=== PATIENT | female | born 1975 | race Caucasian/White ===

== ENCOUNTER → 2016-09-21 | Outpatient (CLI) | payer OTHER ==
--- NOTE | 2016-09-25 08:34 | WOMENS IMAGING REPORT ---
EXAM DESCRIPTION: BILAT SCREENING MAMMO W/CAD COMPLETED DATE/TIME: 09/21/2016 1:40 pm REASON FOR STUDY: Z12.31, ROUTINE SCREENING MAMMO Z12.31 ENCNTR SCREEN MAMMOGRAM FOR MALIGNANT NEOP LASM OF BREA COMPARISON: None. TECHNIQUE: Standard craniocaudal and mediolateral oblique views of each breast recorded using Solexaa l acquisition. LIMITATIONS: None. FINDINGS: No masses, calcifications or architectural distortion. No areas of suspicion. Read with the assistance of CAD. .[facility] - R2 Cenova Version 1.3 .[facility] - R2 Cenova Version 1.3 .[facility] - R2 Cenova Version 2.4 .[facility] - R2 Cenova Version 2.4 .[facility] - R2 Communications Professor Version 9.2 BREAST DENSITY: b. There are scattered areas of fibroglandular density. BIRAD: 1 NEGATIVE RECOMMENDATION: ROUTINE SCREENING COMMENT: PATIENT NOTIFIED BY LETTER. The [employer] recommends an annual screening mammogram for women aged 40 years or over. Each patient will receive a reminder prior to the anniversary date of her mammogram. The [employer] (ACR) has developed recommendations for screening MRI of the breast s in certain patient populations, to be used in conjunction with mammography. Breast MRI surveillanc e may be appropriate for women with more than 20% lifetime risk of developing breast cancer as deter mined by genetic testing, significant family history of the disease, or history of mantle radiation f or Hodgkins Disease. ACR Practice Guidelines 2008. TECHNICAL DOCUMENTATION: FINDING NUMBER: (1) ASSESSMENT: (1) JOB ID: [id number] [employer]- All Rights Reserved
== END ==
LOC: WI 13:15
PROVIDERS: ATTEND Nurse Practitioner Family
DX: Z12.31 Encounter for screening mammogram for malignant neoplasm of breast (principal)
CPT/HCPCS: 77067; G0202

== ENCOUNTER 2016-10-11 19:11 | Emergency (ER) | payer OTHER ==
[2016-10-11] MEDS ORDERED: ACETAMINOPHEN 325 MG TABLET PO ONE (20:13)
--- NOTE | 2016-10-11 20:13 | ER Document Report ---
ED Medical Screen (RME) - General Stated Complaint: COUGH/VOMITING/DIZZINESS Notes: patient is a 41 year old female p/w cough, chills, fever, n/v since last night emesis x1 denies nausea currently did receive a flu vaccine this year mother in law and brother in law were sick contacts I have greeted and performed a rapid initial assessment of this patient. A comprehensive ED assessment and evaluation of the patient, analysis of test results and completion of the medical decision making process will be conducted by additional ED providers. TRAVEL OUTSIDE OF THE [place] IN LAST 30 DAYS: No - Related Data Allergies/Adverse Reactions: diazepam [From Valium] Allergy (Verified 04/10/13 19:54) rash Past Medical History Pulmonary Medical History: Reports: Hx Bronchitis Neurological Medical History: Reports: Hx Migraine Musculoskeltal Medical History: Reports Hx Arthritis Past Surgical History: Reports: Hx Hysterectomy - Partial - Immunizations Immunizations up to date: Yes Hx Diphtheria, Pertussis, Tetanus Vaccination: No - will provide today
[2016-10-12] MEDS ORDERED: BENZONATATE 100 MG CAPSULE PO ONE (00:55)
[2016-10-12] MEDS ORDERED: ONDANSETRON ODT 4 MG TAB (6 TAB/DSPK) PO PRN (00:55)
[2016-10-12] MEDS ORDERED: HYDROCODONE/ACETAMINOPHEN 5-325 MG 6 TAB/DSPK PO PRN (00:55)
--- NOTE | 2016-10-12 00:57 | ER Document Report ---
ED Flu Like - General Chief Complaint: Flu Symptoms Stated Complaint: COUGH/VOMITING/DIZZINESS Time seen by provider: 00:56 Mode of Arrival: Ambulatory Information source: Patient TRAVEL OUTSIDE OF THE [place] IN LAST 30 DAYS: No - HPI Patient complains to provider of: flulike symptoms Onset: Yesterday Timing/Duration: Persistent Quality of pain: Achy Severity: Mild Pain Level: 2 Associated symptoms: Body/muscle aches, Chills, Nonproductive cough, Fever, Vomiting Notes: Patient is a 41-year-old female presenting to the emergency room complaining of fever, headache, body aches, vomiting 1 episode, nonproductive cough and sore throat, symptoms have been going on since yesterday, she took some Tylenol earlier in the day and it seemed to help her symptoms of bring her fever down but then they returned once the Tylenol wore off, patient reports multiple sick contacts recently - Related Data Allergies/Adverse Reactions: diazepam [From Valium] Allergy (Verified 10/12/16 00:16) rash Past Medical History - General Information source: Patient - Social History Smoking Status: Current Every Day Smoker Chew tobacco use (# tins/day): No Frequency of alcohol use: None Drug Abuse: None Family History: DM, Hypertension, Malignancy Patient has suicidal ideation: No Patient has homicidal ideation: No Pulmonary Medical History: Reports: Hx Bronchitis Neurological Medical History: Reports: Hx Migraine Renal/ Medical History: Denies: Hx Peritoneal Dialysis Musculoskeltal Medical History: Reports Hx Arthritis Past Surgical History: Reports: Hx Hysterectomy - Immunizations Immunizations up to date: Yes Hx Diphtheria, Pertussis, Tetanus Vaccination: No - will provide today Review of Systems - Review of Systems Constitutional: See HPI EENT: See HPI Cardiovascular: No symptoms reported Respiratory: See HPI Gastrointestinal: See HPI Genitourinary: No symptoms reported Female Genitourinary: No symptoms reported Musculoskeletal: See HPI Skin: No symptoms reported Hematologic/Lymphatic: No symptoms reported Neurological/Psychological: See HPI -: Yes All other systems reviewed and negative Physical Exam - Vital signs Interpretation: Normal - General General appearance: Appears well, Alert - HEENT Head: Normocephalic, Atraumatic Eyes: Normal Conjunctiva: Normal Extraocular movements intact: Yes Eyelashes: Normal Pupils: PERRL Ears: Normal External canal: Normal Tympanic membrane: Normal Sinus: Normal Nasal: Normal Mouth/Lips: Normal Mucous membranes: Normal Pharynx: Normal Neck: Normal - Respiratory Respiratory status: No respiratory distress Chest status: Nontender Breath sounds: Normal Chest palpation: Normal - Cardiovascular Rhythm: Regular Heart sounds: Normal auscultation Murmur: No - Abdominal Inspection: Normal Distension: No distension Bowel sounds: Normal Tenderness: Nontender Organomegaly: No organomegaly - Back Back: Normal, Nontender - Extremities General upper extremity: Normal inspection, Nontender, Normal color, Normal ROM , Normal temperature General lower extremity: Normal inspection, Nontender, Normal color, Normal ROM , Normal temperature, Normal weight bearing. No: Sukhwinder's sign - Neurological Neuro grossly intact: Yes Cognition: Normal Orientation: AAOx4 [place] Coma Scale Eye Opening: Spontaneous [place] Coma Scale Verbal: Oriented [place] Coma Scale Motor: Obeys Commands [place] Coma Scale Total: 15 Speech: Normal Motor strength normal: LUE, RUE, LLE, RLE Sensory: Normal - Psychological Associated symptoms: Normal affect, Normal mood - Skin Skin Temperature: Warm Skin Moisture: Dry Skin Color: Normal Course - Re-evaluation Re-evalutation: 10/12/16 03:50 Patient symptoms consistent with viral illness, her flu tests were negative, I offered to provide her with IV fluids and medications or allow her to be discharged home with medications to take by mouth, she stated she preferred to go home and rest with medications by mouth, she was given Zofran and hydrocodone , as well as Tessalon in the emergency room and advised to follow-up with a primary care provider, or return if symptoms worsen, patient acknowledges understanding and agreement with this plan Discharge - Discharge Clinical Impression: Viral upper respiratory illness Condition: Stable Disposition: HOME, SELF-CARE Instructions: Fever ([facility]), Acetaminophen, Upper Respiratory Illness ([facility]), Viral Syndrome ([facility]) Additional Instructions: Follow up with your primary care provider in one to 2 days. Return to the emergency room immediately if symptoms worsen or any additional concerns. Tylenol or Motrin as needed for fever or body aches. Drink plenty fluids. Prescriptions: Benzonatate [Tessalon Perle 100 mg Capsule] 100 mg PO Q8HP PRN #40 cap PRN Reason: Hydrocodone/Acetaminophen [Hydrocodon-Acetaminophen 5-325] 1 each PO Q6 #20 tablet Ondansetron [Zofran Odt 4 mg Tablet] 1 - 2 tab PO Q4H #10 tab.rapdis Forms: Smoking Cessation Education, Return to Work
[2016-10-12 04:59] VITALS: BP 120/85
== END 2016-10-12 01:05 | disposition home or self-care (01) ==
LOC: ER 19:11
DX: J06.9 Acute upper respiratory infection, unspecified (principal); B97.89 Other viral agents as the cause of diseases classified elsewhere; R05 Cough; R50.9 Fever, unspecified; R11.10 Vomiting, unspecified; J02.9 Acute pharyngitis, unspecified; R51 Headache; Z88.8 Allergy status to other drugs, medicaments and biological substances; F17.200 Nicotine dependence, unspecified, uncomplicated
CPT/HCPCS: 87804; 99283

== ENCOUNTER 2016-11-22 17:53 | Emergency (ER) | payer OTHER ==
--- NOTE | 2016-11-22 18:22 | ER Document Report ---
ED Medical Screen (RME) - General Stated Complaint: RIGHT ANKLE INJURY Time seen by provider: 18:19 Mode of Arrival: Ambulatory Information source: Patient Notes: 41-year-old female presents to ED for right ankle pain after rolling her ankle at 8:30 this morning. She states she has been trying to elevate and ice her between patient and took 800 of ibuprofen. States she also took a naproxen around 1 PM. She states she went on lunch break about 12:30 and went home and got an ankle brace that she is put on it cut supported. Ankle is swollen and very tender to touch peripheral pulses present. She has had a partial hysterectomy. I have greeted and performed a rapid initial assessment of this patient. A comprehensive ED assessment and evaluation of the patient, analysis of test results and completion of medical decision making process will be conducted by an additional ED providers. TRAVEL OUTSIDE OF THE [place] IN LAST 30 DAYS: No - Related Data Allergies/Adverse Reactions: diazepam [From Valium] Allergy (Verified 10/12/16 00:16) rash Past Medical History Pulmonary Medical History: Reports: Hx Bronchitis Neurological Medical History: Reports: Hx Migraine Renal/ Medical History: Denies: Hx Peritoneal Dialysis Musculoskeltal Medical History: Reports Hx Arthritis Past Surgical History: Reports: Hx Hysterectomy - Immunizations Immunizations up to date: Yes Hx Diphtheria, Pertussis, Tetanus Vaccination: No - will provide today Physical Exam - Vital signs Vitals: Temp Pulse Resp BP Pulse Ox 98.2 F 100 17 129/84 H 99 11/22/16 18:18 11/22/16 18:18 11/22/16 18:18 11/22/16 18:18 11/22/16 18:18 Course - Vital Signs Vital signs: Temp Pulse Resp BP Pulse Ox 98.2 F 100 17 129/84 H 99 11/22/16 18:18 11/22/16 18:18 11/22/16 18:18 11/22/16 18:18 11/22/16 18:18
[2016-11-22 21:09] VITALS: BP 133/88
--- NOTE | 2016-11-22 21:27 | ER Document Report ---
ED General - General Chief Complaint: Ankle Injury Stated Complaint: RIGHT ANKLE INJURY Mode of Arrival: Ambulatory Notes: Patient is a 41-year-old female who presents with right ankle pain after she jumped up in the air and landed incorrectly on her foot just prior to arrival. States that her ankle rolled. Since that since that time she has had severe, constant, throbbing pain to the right ankle. States he has been able to bear weight but that this does worsen the pain. States she's been icing the ankle as well as keeping it compressed but this has not improved the pain. No history of a prior injury to this ankle. She has not seen her primary care doctor regarding today's concerns. Denies any additional injuries. TRAVEL OUTSIDE OF THE [place] IN LAST 30 DAYS: No - Related Data Allergies/Adverse Reactions: diazepam [From Valium] Allergy (Verified 11/22/16 18:20) rash Past Medical History - General Information source: Patient - Social History Smoking Status: Current Every Day Smoker Chew tobacco use (# tins/day): No Frequency of alcohol use: None Drug Abuse: None Lives with: Spouse/Significant other Family History: DM, Hypertension, Malignancy Patient has suicidal ideation: No Patient has homicidal ideation: No Pulmonary Medical History: Reports: Hx Bronchitis Neurological Medical History: Reports: Hx Migraine Renal/ Medical History: Denies: Hx Peritoneal Dialysis Musculoskeltal Medical History: Reports Hx Arthritis Past Surgical History: Reports: Hx Hysterectomy - Immunizations Immunizations up to date: Yes Hx Diphtheria, Pertussis, Tetanus Vaccination: No - will provide today Review of Systems - Review of Systems Notes: Constitutional: Negative for fever. Eyes: Negative for visual changes. ENT: Negative for facial injury Cardiovascular: Negative for chest injury. Respiratory: Negative for shortness of breath. Gastrointestinal: Negative for abdominal injury. Genitourinary: Negative for genital injury Musculoskeletal: Positive for ankle injury Skin: Negative for laceration/abrasions. Neurological: Negative for head injury. Physical Exam - Vital signs Vitals: Temp Pulse Resp BP Pulse Ox 98.2 F 100 17 129/84 H 99 11/22/16 18:18 11/22/16 18:18 11/22/16 18:18 11/22/16 18:18 11/22/16 18:18 Interpretation: Normal Notes: PHYSICAL EXAMINATION: GENERAL: Well-appearing, well-nourished and in no acute distress. HEAD: Atraumatic, normocephalic. EYES: sclera anicteric, conjunctiva are normal. ENT: Moist mucous membranes. NECK: Normal range of motion LUNGS: Normal work of breathing HEART: 2+ DP pulses bilaterally. EXTREMITIES: There is mild swelling to the right ankle. Pain on palpation of the lateral malleolus. No deformity. NEUROLOGICAL: No focal neurological deficits. Moves all extremities spontaneously and on command. PSYCH: Normal mood, normal affect. SKIN: Warm, Dry, normal turgor, no rashes or lesions noted. Course - Re-evaluation Re-evalutation: 11/22/16 21:27 No evidence of a septic joint, gout flare, dislocation, or fracture on exam and imaging. History and exam are most consistent with likely ligamentous injury. Vitals wnl. At this time, I do not see an indication for labs or further imaging. Will discharge with conservative measures, return precautions, and follow-up recommendations. - Vital Signs Vital signs: Temp Pulse Resp BP Pulse Ox 98.4 F 74 16 133/88 H 100 11/22/16 20:57 11/22/16 20:57 11/22/16 20:57 11/22/16 20:57 11/22/16 20:57 - Diagnostic Test Radiology reviewed: Image reviewed, Reports reviewed Radiology results interpreted by me: 11/23/16 03:39 Right ankle x-ray: No acute fracture. Discharge - Discharge Clinical Impression: Right ankle pain Qualifiers: Chronicity: acute Qualified Code(s): M25.571 - Pain in right ankle and joints of right foot Condition: Good Disposition: HOME, SELF-CARE Additional Instructions: Your x-ray does not show any acute fracture today. You likely have a ligamentous strain. You should continue to take anti-inflammatories such as ibuprofen 600 mg every 6 hours. Continue to apply ice to the area is much your able. Please follow-up with your primary care physician if you do not have improving your symptoms in the next 1-2 weeks. Please return immediately if you develop weakness, numbness, spreading redness from the area, or any other symptoms that are concerning to you. Referrals: JIAN BOB MD [ACTIVE STAFF] - Follow up as needed
== END 2016-11-22 22:20 | disposition home or self-care (01) ==
LOC: ER 17:53
DX: S99.911A Unspecified injury of right ankle, initial encounter (principal); M25.571 Pain in right ankle and joints of right foot; X58.XXXA Exposure to other specified factors, initial encounter; X50.0XXA Overexertion from strenuous movement or load, initial encounter; Y93.39 Activity, other involving climbing, rappelling and jumping off; Z88.8 Allergy status to other drugs, medicaments and biological substances; F17.200 Nicotine dependence, unspecified, uncomplicated
CPT/HCPCS: 99283

== ENCOUNTER 2017-04-17 18:12 | Emergency (ER) | payer OTHER ==
--- NOTE | 2017-04-17 20:07 | ER Document Report ---
ED Hand/Wrist Injury - General Chief Complaint: Wrist Pain Stated Complaint: WRIST PAIN Time Seen by Provider: 04/17/17 19:43 Notes: 41 yo female c/o right wrist and thumb pain x 1 day. hit hand on metal pole of patient bed TRAVEL OUTSIDE OF THE [place] IN LAST 30 DAYS: No - HPI Injury to: Wrist, Thumb - right Onset: This morning Where: Home Timing: Constant Quality of pain: Sharp Severity: None Pain Level: 3 Context: Blow - Related Data Allergies/Adverse Reactions: diazepam [From Valium] Allergy (Verified 04/17/17 18:51) rash Past Medical History - General Information source: Patient - Social History Smoking Status: Current Every Day Smoker Chew tobacco use (# tins/day): No Frequency of alcohol use: None Drug Abuse: None Lives with: Family Family History: DM, Hypertension, Malignancy Pulmonary Medical History: Reports: Hx Bronchitis Neurological Medical History: Reports: Hx Migraine Renal/ Medical History: Denies: Hx Peritoneal Dialysis Musculoskeltal Medical History: Reports Hx Arthritis Past Surgical History: Reports: Hx Hysterectomy - Immunizations Immunizations up to date: Yes Hx Diphtheria, Pertussis, Tetanus Vaccination: No - will provide today Review of Systems - Review of Systems Constitutional: No symptoms reported EENT: No symptoms reported Cardiovascular: No symptoms reported Respiratory: No symptoms reported Gastrointestinal: No symptoms reported Genitourinary: No symptoms reported Female Genitourinary: No symptoms reported Musculoskeletal: No symptoms reported Skin: No symptoms reported Hematologic/Lymphatic: No symptoms reported Neurological/Psychological: No symptoms reported Physical Exam - Vital signs Interpretation: Normal - General General appearance: Appears well, Alert - HEENT Head: Normocephalic, Atraumatic Eyes: Normal Pupils: PERRL - Respiratory Respiratory status: No respiratory distress Chest status: Nontender Breath sounds: Normal Chest palpation: Normal - Cardiovascular Rhythm: Regular Heart sounds: Normal auscultation Murmur: No - Abdominal Inspection: Normal Distension: No distension Bowel sounds: Normal Tenderness: Nontender Organomegaly: No organomegaly - Back Back: Normal, Nontender - Extremities General lower extremity: Normal inspection, Nontender, Normal color, Normal ROM , Normal temperature, Normal weight bearing. No: Sukhwinder's sign Wrist: Tender - right navicular tenderness Hand: Tender - right thenar tenderness. right 1st metacarpal tenderness. - Neurological Neuro grossly intact: Yes Cognition: Normal Orientation: AAOx4 [place] Coma Scale Eye Opening: Spontaneous [place] Coma Scale Verbal: Oriented [place] Coma Scale Motor: Obeys Commands [place] Coma Scale Total: 15 Speech: Normal Motor strength normal: LUE, RUE, LLE, RLE Sensory: Normal - Psychological Associated symptoms: Normal affect, Normal mood - Skin Skin Temperature: Warm Skin Moisture: Dry Skin Color: Normal Course - Re-evaluation Re-evalutation: 04/17/17 20:31 xray negative for fracture. will splint for comfort and protection. Procedures - Immobilization right wrist Pre-Proc Neuro Vasc Exam: Normal Immobilizer type: Cock-up Performed by: PCT Post-Proc Neuro Vasc Exam: Normal Alignment checked and good: Yes Discharge - Discharge Clinical Impression: Right wrist sprain Qualifiers: Encounter type: initial encounter Qualified Code(s): S63.501A - Unspecified sprain of right wrist, initial encounter Condition: Stable Instructions: Wrist Sprain ([facility]), Temporary Splint ([facility]), Ice & Elevation ([facility]) , Ibuprofen (General) ([facility]) Additional Instructions: your xrays are negative for fracture wear splint for comfort and support ice and elevate affected extremity as much as possible follow up with primary care/orthopedics if pain persists more than 10 days Prescriptions: Ibuprofen [Motrin 800 Mg Tablet] 800 mg PO Q6H #20 tablet
--- NOTE | 2017-04-17 20:35 | RADIOLOGY REPORT (SQ) ---
EXAM DESCRIPTION: HAND RIGHT 3 VIEWS COMPLETED DATE/TIME: 04/17/2017 8:23 pm REASON FOR STUDY: hit arm on metal haroon, + navicular tenderness COMPARISON: None. EXAM PARAMETERS: NUMBER OF VIEWS: Three views. TECHNIQUE: AP, lateral and oblique radiographic images acquired of the right hand. LIMITATIONS: None. FINDINGS: MINERALIZATION: Normal. BONES: No acute fracture or dislocation. No worrisome bone lesions. JOINTS: No effusions. SOFT TISSUES: No soft tissue swelling. No foreign body. OTHER: No other significant finding. IMPRESSION: NO RADIOGRAPHIC EVIDENCE OF ACUTE INJURY. TECHNICAL DOCUMENTATION: JOB ID: [id number] [employer]- All Rights Reserved
--- NOTE | 2017-04-17 20:36 | RADIOLOGY REPORT (SQ) ---
EXAM DESCRIPTION: WRIST RIGHT 3 VIEWS COMPLETED DATE/TIME: 04/17/2017 8:23 pm REASON FOR STUDY: hit arm on metal haroon, + navicular tenderness COMPARISON: None. NUMBER OF VIEWS: Three views. TECHNIQUE: AP, lateral, and oblique radiographic images acquired of the right wrist. LIMITATIONS: None. FINDINGS: MINERALIZATION: Normal. BONES: No acute fracture or dislocation. No worrisome bone lesions. Normal alignment. SOFT TISSUES: No soft tissue swelling. No foreign body. OTHER: No other significant finding. IMPRESSION: NO RADIOGRAPHIC EVIDENCE OF ACUTE INJURY. TECHNICAL DOCUMENTATION: JOB ID: [id number] [employer]- All Rights Reserved
[2017-04-17] MEDS ORDERED: HYDROCODONE/ACETAMINOPHEN 5-325 MG 6 TAB/DSPK PO PRN (20:42)
[2017-04-17 21:00] VITALS: BP 125/74
== END 2017-04-17 21:00 | disposition home or self-care (01) ==
LOC: ER 18:12
DX: S63.501A Unspecified sprain of right wrist, initial encounter (principal); M25.531 Pain in right wrist; W22.8XXA Striking against or struck by other objects, initial encounter; F17.200 Nicotine dependence, unspecified, uncomplicated
CPT/HCPCS: 99283; 73130; 73110; L3908

== ENCOUNTER 2017-10-19 01:50 | Emergency (ER) | payer OTHER ==
[2017-10-19] MEDS ORDERED: ONDANSETRON HCL INJ/PF 4 MG/2 ML SDV IV ONE (02:27)
[2017-10-19] MEDS ORDERED: KETOROLAC TROMETHAMINE INJ/PF 30 MG/1 ML SDV IV ONE (02:27)
[2017-10-19] MEDS ORDERED: NORMAL SALINE 1000 ML 1,000 ML IV ONE (02:27)
--- NOTE | 2017-10-19 02:29 | ER Document Report ---
ED GI/ - General Chief Complaint: Abdominal Pain Stated Complaint: ABDOMINAL PAIN Time Seen by Provider: 10/19/17 02:21 Notes: Patient is a 42-year-old female who comes emergency department for chief complaint of upper abdominal pain. She states pain is been present for 2 weeks , intermittent, tonight became severe. She denies nausea or vomiting. Pain is significantly worse after eating. She reports normal bowel movements, denies flank pain, denies lower abdominal pain, denies fever or chills. Past medical history of migraines. She has had a partial hysterectomy. TRAVEL OUTSIDE OF THE [place] IN LAST 30 DAYS: No - Related Data Allergies/Adverse Reactions: diazepam [From Valium] Allergy (Verified 04/17/17 18:51) rash topiramate [From Topamax] Allergy (Verified 10/19/17 02:01) Past Medical History - General Information source: Patient - Social History Smoking Status: Current Every Day Smoker Smoking Education Provided: Yes - <3 min Frequency of alcohol use: None Drug Abuse: None Lives with: Family Family History: DM, Hypertension, Malignancy Pulmonary Medical History: Reports: Hx Bronchitis Neurological Medical History: Reports: Hx Migraine Renal/ Medical History: Denies: Hx Peritoneal Dialysis Musculoskeltal Medical History: Reports Hx Arthritis Past Surgical History: Reports: Hx Hysterectomy - Immunizations Immunizations up to date: Yes Hx Diphtheria, Pertussis, Tetanus Vaccination: No - will provide today Review of Systems - Review of Systems Constitutional: No symptoms reported EENT: No symptoms reported Cardiovascular: No symptoms reported Respiratory: No symptoms reported Gastrointestinal: See HPI Genitourinary: No symptoms reported Female Genitourinary: No symptoms reported Musculoskeletal: No symptoms reported Skin: No symptoms reported Hematologic/Lymphatic: No symptoms reported Neurological/Psychological: No symptoms reported Physical Exam - Vital signs Vitals: Temp Pulse Resp BP Pulse Ox 98.8 F 89 18 135/96 H 99 10/19/17 02:03 10/19/17 02:03 10/19/17 02:03 10/19/17 02:03 10/19/17 02:03 Interpretation: Normal - General General appearance: Appears well, Alert In distress: None - HEENT Head: Normocephalic, Atraumatic Eyes: Normal Pupils: PERRL - Respiratory Respiratory status: No respiratory distress Chest status: Nontender Breath sounds: Normal Chest palpation: Normal - Cardiovascular Rhythm: Regular Heart sounds: Normal auscultation Murmur: No - Abdominal Inspection: Normal Distension: No distension Bowel sounds: Normal Tenderness: Tender - Tender in epigastric area, also mildly tender in the right upper quadrant, otherwise soft and benign abdomen Organomegaly: No organomegaly - Back Back: Normal, Nontender. No: Tender - Extremities General upper extremity: Normal inspection, Nontender, Normal color, Normal ROM , Normal temperature General lower extremity: Normal inspection, Nontender, Normal color, Normal ROM , Normal temperature, Normal weight bearing. No: Sukhwinder's sign - Neurological Neuro grossly intact: Yes Cognition: Normal Orientation: AAOx4 [place] Coma Scale Eye Opening: Spontaneous [place] Coma Scale Verbal: Oriented [place] Coma Scale Motor: Obeys Commands [place] Coma Scale Total: 15 Speech: Normal Motor strength normal: LUE, RUE, LLE, RLE Sensory: Normal - Psychological Associated symptoms: Normal affect, Normal mood - Skin Skin Temperature: Warm Skin Moisture: Dry Skin Color: Normal Course - Re-evaluation Re-evalutation: CBC, chemistry, lipase, urinalysis unremarkable. Ultrasound unremarkable with no acute abnormality. Abdominal exam showing tenderness in the upper abdomen but no guarding suggesting acute abdomen. Unremarkable vital signs. Based on patient's symptoms patient will be treated for suspected gastritis/ esophagitis, given recommendations, discussed follow-up and return precautions in detail, patient states satisfaction and agreement with plan. - Vital Signs Vital signs: Temp Pulse Resp BP Pulse Ox 98.8 F 80 18 115/66 100 10/19/17 02:03 10/19/17 04:49 10/19/17 04:49 10/19/17 04:49 10/19/17 04:49 - Laboratory Result Diagrams: 10/19/17 02:30 10/19/17 02:30 Laboratory results interpreted by me: 10/19/17 02:43 Urine Blood SMALL H Discharge - Discharge Clinical Impression: Upper abdominal pain Disposition: HOME, SELF-CARE Additional Instructions: Your laboratory workup and ultrasound are normal. Because of your symptoms I suspect the cause of your symptoms is inflammation in the upper part of your gastrointestinal tract. I recommend taking the Pepcid and Carafate as prescribed, avoid smoking, alcohol, caffeine, spicy foods , NSAIDs. Follow-up with primary care for additional evaluation including possible follow-up endoscopy or HIDA scan. Return for any concerning or worsening symptoms including vomiting, vomiting blood, severe abdominal pain, black stools, or any other concerning or worsening symptoms. Prescriptions: Famotidine [Pepcid 20 mg Tablet] 20 mg PO BID #20 tablet Sucralfate [Carafate 1 gm Tablet] 1 gm PO QID #20 tablet
[2017-10-19 02:44] LABS: ABSOLUTE BASOPHILS # (AUTO) 0.1 10^3/uL (0.0-0.2); ABSOLUTE EOSINOPHILS # (AUTO) 0.4 10^3/uL (0.0-0.6); ABSOLUTE LYMPHOCYTES (AUTO) 2.6 10^3/uL (0.5-4.7); ABSOLUTE MONOCYTES (AUTO) 0.4 10^3/uL (0.1-1.4); ABSOLUTE NEUT (AUTO) 4.2 10^3/uL (1.7-8.2); BASOPHILS % (AUTO) 0.7 % (0-2); EOSINOPHILS % (AUTO) 5.3 % (0-6); HEMATOCRIT 38.9 % (36.0-47.0); HEMOGLOBIN 13.4 g/dL (12.0-15.5); LYMPHOCYTES % (AUTO) 33.6 % (13-45); MEAN CORPUSCULAR HGB CONC 34.5 g/dL (32.0-36.0); MEAN CORPUSCULAR VOLUME 90 fl (80-97); MONOCYTES % (AUTO) 5.1 % (3-13); PLATELET COUNT 247 10^3/uL (150-450); RED BLOOD COUNT 4.33 10^6/uL (3.72-5.28); RED CELL DISTRIBUTION WIDTH 12.4 % (11.5-14.0); SEGMENTED NEUTROPHILS % (AUTO) 55.3 % (42-78); TOTAL CELLS COUNTED % (AUTO) 100 %; WHITE BLOOD COUNT 7.6 10^3/uL (4.0-10.5)
[2017-10-19 02:59] LABS: APPEARANCE,URINE CLEAR; BILIRUBIN,URINE NEGATIVE (NEGATIVE); COLOR,URINE STRAW; GLUCOSE, URINE NEGATIVE (NEGATIVE); KETONES,URINE NEGATIVE (NEGATIVE); LEUKOCYTE ESTERASE,URINE NEGATIVE (NEGATIVE); NITRITE,URINE NEGATIVE (NEGATIVE); PROTEIN,URINE NEGATIVE (NEGATIVE); URINE SPECIFIC GRAVITY 1.003; UROBILINOGEN,URINE NEGATIVE mg/dL (<2.0)
[2017-10-19 03:05] LABS: ALANINE AMINOTRANSFERASE 26 U/L (9-52); ALBUMIN 3.8 g/dL (3.5-5.0); ALKALINE PHOSPHATASE 64 U/L (38-126); ANION GAP 10 (5-19); ASPARTATE AMINO TRANSFERASE 16 U/L (14-36); BILIRUBIN,DIRECT 0.3 mg/dL (0.0-0.4); BILIRUBIN,TOTAL 0.3 mg/dL (0.2-1.3); BLOOD UREA NITROGEN 11 mg/dL (7-20); CALCIUM 8.9 mg/dL (8.4-10.2); CARBON DIOXIDE 25 mmol/L (22-30); CHLORIDE 106 mmol/L (98-107); GLUCOSE 97 mg/dL (75-110); LIPASE 79.4 U/L (23-300); POTASSIUM 4.3 mmol/L (3.6-5.0)
--- NOTE | 2017-10-19 04:31 | RADIOLOGY REPORT (SQ) ---
EXAM DESCRIPTION: U/S ABDOMEN LIMITED W/O DOP CLINICAL HISTORY: epigastric and RUQ pain COMPARISON: None. TECHNIQUE: Real-time sonographic images of the right upper abdomen were obtained using a curved multihertz transducer. FINDINGS: The visualized portions of the pancreas are unremarkable. The visualized portions of the aorta and IVC are unremarkable. The liver has normal contour and echogenicity. Hepatopedal flow in the portal vein. Common bile duct measures 0.3 cm. The gallbladder has a normal appearance. No gallstones identified. No wall thickening or pericholecystic fluid. The right kidney measures 9.3 cm in length. No hydronephrosis, solid renal mass, or shadowing calculi. IMPRESSION: 1. No abnormality in the right upper abdomen. No gallstones.
[2017-10-19] MEDS ORDERED: FAMOTIDINE 20 MG TABLET PO ONE (04:41)
[2017-10-19] MEDS ORDERED: SUCRALFATE 1 GM TABLET PO ONE (04:41)
[2017-10-19 05:01] VITALS: BP 115/66
== END 2017-10-19 05:01 | disposition home or self-care (01) ==
LOC: ER 01:50
DX: R10.10 Upper abdominal pain, unspecified (principal); R10.811 Right upper quadrant abdominal tenderness; R10.816 Epigastric abdominal tenderness; F17.200 Nicotine dependence, unspecified, uncomplicated; Z71.6 Tobacco abuse counseling; Z88.8 Allergy status to other drugs, medicaments and biological substances; Z88.6 Allergy status to analgesic agent
CPT/HCPCS: 99284; 96361; 96374; 96375; 36415; 83690; 85025; 80053; 81001; 76705; J1885; J2405; J7030

== ENCOUNTER 2018-06-14 22:22 | Emergency (ER) | payer OTHER ==
[2018-06-15] MEDS ORDERED: KETOROLAC TROMETHAMINE INJ/PF 30 MG/1 ML SDV IV ONE (00:30)
[2018-06-15] MEDS ORDERED: LIDOCAINE 5% (700 MG) TRANSDERMAL ADH..PATCH TP ONE (00:30)
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
--- NOTE | 2018-06-15 01:22 | RADIOLOGY REPORT (SQ) ---
CLINICAL HISTORY: ac joint pain COMPARISON: None. TECHNIQUE: XR SHOULDER 2 OR MORE VIEWS 06/15/2018 12:30 AM CDT FINDINGS: There is no fracture. Joint spaces are preserved. Soft tissues are unremarkable. IMPRESSION: No acute osseous findings.
[2018-06-15 01:46] VITALS: BP 131/89
== END 2018-06-15 01:46 | disposition home or self-care (01) ==
LOC: ER 22:22
DX: M25.512 Pain in left shoulder (principal); G56.92 Unspecified mononeuropathy of left upper limb; F17.200 Nicotine dependence, unspecified, uncomplicated; Z90.710 Acquired absence of both cervix and uterus
CPT/HCPCS: 99284; 96374; 73030; J1885

== ENCOUNTER 2018-06-22 10:37 | Emergency (ER) | payer OTHER ==
[2018-06-22 10:46] VITALS: BP 151/98
[2018-06-22] MEDS ORDERED: DIPH/PERTUSS(ACELL)/TETANUS VAC/PF 0.5 ML SYR (>=10YO) IM ONE (10:55)
[2018-06-22] MEDS ORDERED: BACITRACIN OPH OINT 3.5 GM TP ONE (10:56)
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
== END 2018-06-22 11:22 | disposition home or self-care (01) ==
LOC: ER 10:37
DX: S00.83XA Contusion of other part of head, initial encounter (principal); Y04.2XXA Assault by strike against or bumped into by another person, initial encounter; Y92.008 Other place in unspecified non-institutional (private) residence as the place of occurrence of the external cause; F17.210 Nicotine dependence, cigarettes, uncomplicated; Z88.8 Allergy status to other drugs, medicaments and biological substances; Z88.6 Allergy status to analgesic agent; Z23 Encounter for immunization
CPT/HCPCS: 90471; 90715; 99283; J3490

== ENCOUNTER 2018-09-23 17:53 | Emergency (ER) | payer OTHER ==
[2018-09-23 18:00] VITALS: BP 129/82
--- NOTE | 2018-09-23 18:26 | ER Document Report ---
HPI - HPI Time Seen by Provider: 09/23/18 18:16 Pain Level: 4 Notes: Patient is a 43-year-old female with no significant past medical history aside from arthritis, migraines, and being on disability who presents to the emergency department complaining of a harsh dry nonproductive cough with intermittent headache over the last 3 days. Patient states that a coworker had a similar illness. She is otherwise eating and drinking without difficulty. She is urinating normally and having normal bowel movements. Patient states that she gets something similar about once a year. No other concerns or complaints. Denies any fever, head injury, neck pain, changes in vis ion/speech/mentation/hearing, URI, sore throat, chest pain, palpitations, syncope, shortness of breath, wheeze, dyspnea, abdominal pain, nausea/vomiting/diarrhea, urinary retention, dysuria, hematuria, or rash. - ROS Systems Reviewed and Negative: Yes All other systems reviewed and negative - RESPIRATORY Respiratory: REPORTS: Coughing - REPRODUCTIVE Reproductive: DENIES: : Past Medical History - Social History Smoking Status: Current Every Day Smoker Family History: DM, Hypertension, Malignancy Patient has suicidal ideation: No Patient has homicidal ideation: No Pulmonary Medical History: Reports: Hx Bronchitis Neurological Medical History: Reports: Hx Migraine Renal/ Medical History: Denies: Hx Peritoneal Dialysis Musculoskeletal Medical History: Reports Hx Arthritis Past Surgical History: Reports: Hx Hysterectomy - Immunizations Immunizations up to date: Yes Hx Diphtheria, Pertussis, Tetanus Vaccination: No - will provide today Vertical Provider Document - CONSTITUTIONAL Agree With Documented VS: Yes Notes: PHYSICAL EXAMINATION: GENERAL: Well-appearing, well-nourished and in no acute distress. A&Ox4. Answers questions appropriately. Moves comfortably w/o notable distress HEAD: Atraumatic, normocephalic. EYES: Pupils equal round and reactive to light, extraocular movements intact, sclera anicteric, conjunctiva are normal. ENT: EAC clear b/l. TM's intact b/l without erythema, fluid, or perforation. Nares patent and with clear discharge. oropharynx no erythema without exudates. No tonsilar hypertrophy without erythema or exudate. No palatine shift. Uvula midline. No tongue protrusion. No drooling, hoarseness, or airway compromise. Moist mucous membranes. No sinus tenderness. NECK: Normal range of motion, supple without lymphadenopathy. No rigidity/meningismus. LUNGS: Breath sounds clear to auscultation bilaterally and equal. No wheezes rales or rhonchi. No retractions HEART: Regular rate and rhythm without murmurs, rubs, gallops. ABDOMEN: Soft, nontender, nondistended abdomen. No guarding, no rebound. Normal bowel sounds present. No CVA tenderness bilaterally. NEUROLOGICAL: Normal speech, normal gait. Normal sensory, motor exams PSYCH: Normal mood, normal affect. SKIN: Warm, Dry, normal turgor, no rashes or lesions noted. - INFECTION CONTROL TRAVEL OUTSIDE OF THE [place] IN LAST 30 DAYS: No Course - Re-evaluation Re-evalutation: 09/23/18 18:24 Patient is an afebrile, well-hydrated, 43-year-old female who presents to the ED with acute URI, suspect viral. Vitals are acceptable. PE is otherwise unremarkable. No labs or imaging warranted at this time based on H&P. Patient has no significant cardiopulmonary or immunocompromised medical conditions. Patient's lungs are clear to auscultation bilaterally without tachycardia, hypoxia, or tachypnea. Patient is tolerating p.o. without any difficulties. Low suspicion for any meningitis, sepsis, peritonsillar/pharyngeal abscess, respiratory compromise, severe dehydration, or other emergent systemic condition at this time. Patient is aware this condition can change from initial presentation and she needs to monitor symptoms closely. Conservative measures otherwise for symptoms. Recheck with your PCM in 3-5 days. Return to the ED with any worsening/concerning symptoms otherwise as reviewed in discharge. P atient is in agreement. - Vital Signs Vital signs: Temp Pulse Resp BP Pulse Ox 97.9 F 105 H 18 129/82 H 100 09/23/18 17:59 09/23/18 17:59 09/23/18 17:59 09/23/18 17:59 09/23/18 17:59 Discharge - Discharge Clinical Impression: Acute URI Condition: Stable Disposition: HOME, SELF-CARE Instructions: Upper Respiratory Illness ([facility]) Additional Instructions: Maintain adequate fluid intake Take meds as directed tylenol/ibuprofen as needed over the counter cold medication as needed for symptoms Humidified air may help Wash your hands regularly Wear a mask when coughing F/u: with your PCM in 3-5 days for a recheck Return to the ED with any fever, worsening pain, chest pain, palpitations, syncope, worsening ROLAND, neck pain/stiffness, shortness of breath, wheezing, drooling, trouble swallowing/breathing, abdominal pain, n/v/d, rash, or worsening/concerning symptoms otherwise. Prescriptions: Albuterol Sulfate [Proair HFA Inhalation Aerosol 8.5 gm MDI] 2 puff IH Q4H PRN #1 mdi PRN Reason: Codeine Phosphate/Guaifenesin [Cheratussin Ac Syrup] 10 ml PO QID #100 ml Forms: Return to Work, Elevated Blood Pressure, Smoking Cessation Education Referrals: TOY LIRIANO MD [Primary Care Provider] - Follow up as needed
== END 2018-09-23 18:31 | disposition home or self-care (01) ==
LOC: ER 17:53
DX: J06.9 Acute upper respiratory infection, unspecified (principal); R05 Cough; R51 Headache; F17.200 Nicotine dependence, unspecified, uncomplicated
CPT/HCPCS: 99283

== ENCOUNTER 2018-11-14 20:24 | Emergency (ER) | payer OTHER ==
--- NOTE | 2018-11-14 20:39 | ER Document Report ---
ED Medical Screen (RME) - General Stated Complaint: MIGRAINE Time Seen by Provider: 11/14/18 20:32 Primary Care Provider: JAZIEL JURADO [Primary Care Provider] - Follow up as needed Mode of Arrival: Ambulatory Information source: Patient Notes: Patient is a 43-year-old female who presents to the emergency department with chief complaint of headache. Patient reports headache started approximately 2 days ago. She states it was a gradual onset, felt like 1 of her typical migraines. Patient reports she took a Fioricet which usually helps her headaches, she has had no relief for 2 days now. As she now has associated nausea without vomiting. Patient reports this headache feels much different than her usual migraines. She states it is a global headache. Patient is clutching her head at the [employer] desk. TRAVEL OUTSIDE OF THE [place] IN LAST 30 DAYS: No - Related Data Allergies/Adverse Reactions: diazepam [From Valium] Allergy (Verified 04/17/17 18:51) rash topiramate [From Topamax] Allergy (Verified 10/19/17 02:01) Past Medical History Pulmonary Medical History: Reports: Hx Bronchitis Neurological Medical History: Reports: Hx Migraine Renal/ Medical History: Denies: Hx Peritoneal Dialysis Musculoskeltal Medical History: Reports Hx Arthritis Past Surgical History: Reports: Hx Hysterectomy - Immunizations Immunizations up to date: Yes Hx Diphtheria, Pertussis, Tetanus Vaccination: No - will provide today Doctor's Discharge - Discharge [facility]errals: [facility] [[facility] - Follow up as needed
[2018-11-14] MEDS ORDERED: KETOROLAC TROMETHAMINE 60 MG/2 ML SDV IM ONE (20:45)
[2018-11-14] MEDS ORDERED: DIPHENHYDRAMINE HCL 50 MG/ML VIAL IM ONE (20:45)
[2018-11-14] MEDS ORDERED: PROCHLORPERAZINE EDISYLATE INJ 10 MG/2 ML VIAL IM ONE (20:46)
[2018-11-15] MEDS ORDERED: METOCLOPRAMIDE HCL INJ/PF 10 MG/2 ML SDV IV ONE (00:35)
--- NOTE | 2018-11-15 00:36 | ER Document Report ---
ED General - General Chief Complaint: Headache Stated Complaint: MIGRAINE Time Seen by Provider: 11/14/18 20:32 Primary Care Provider: JAZIEL JURADO [Primary Care Provider] - Follow up as needed Mode of Arrival: Ambulatory Notes: Patient is a 43-year-old female who presents to the emergency department with chief complaint of headache. Patient reports a history of chronic migraine headaches similar to this. Headache is described as a global, throbbing, aching headache. Patient reports headache started approximately 2 days ago. She states it was a gradual onset, felt like 1 of her typical migraines. Patient reports she took a Fioricet which usually helps her headaches without any relief. As she now has associated nausea without vomiting. Contrary to triage assessment the patient states that this headache does not feel different than her migraine headaches. She notes associated photophobia, phonophobia but denies any focal weakness, numbness or confusion. Has not seen her primary care physician regarding today's concerns. TRAVEL OUTSIDE OF THE [place] IN LAST 30 DAYS: No - Related Data Allergies/Adverse Reactions: diazepam [From Valium] Allergy (Verified 04/17/17 18:51) rash topiramate [From Topamax] Allergy (Verified 10/19/17 02:01) Past Medical History - General Information source: Patient - Social History Smoking Status: Current Every Day Smoker Chew tobacco use (# tins/day): No Frequency of alcohol use: None Drug Abuse: None Lives with: Family Family History: DM, Hypertension, Malignancy Patient has suicidal ideation: No Patient has homicidal ideation: No Pulmonary Medical History: Reports: Hx Bronchitis Neurological Medical History: Reports: Hx Migraine Renal/ Medical History: Denies: Hx Peritoneal Dialysis Musculoskeletal Medical History: Reports Hx Arthritis Past Surgical History: Reports: Hx Hysterectomy - Immunizations Immunizations up to date: Yes Hx Diphtheria, Pertussis, Tetanus Vaccination: No - will provide today Review of Systems - Review of Systems Notes: Constitutional: Negative for fever. HENT: Negative for sore throat. Eyes: Negative for visual changes. Cardiovascular: Negative for chest pain. Respiratory: Negative for shortness of breath. Gastrointestinal: Negative for abdominal pain, positive for nausea and vomiting Genitourinary: Negative for dysuria. Musculoskeletal: Negative for back pain. Skin: Negative for rash. Neurological: Positive for headache 10 point ROS negative except as marked above and in HPI. Physical Exam - Vital signs Vitals: Temp Pulse Resp BP Pulse Ox 97.8 F 83 16 148/95 H 98 11/14/18 20:39 11/14/18 20:39 11/14/18 20:39 11/14/18 20:39 11/14/18 20:39 Interpretation: Normal Notes: PHYSICAL EXAMINATION: GENERAL: Well-appearing, well-nourished and in no acute distress. HEAD: Atraumatic, normocephalic. EYES: Pupils equal round and reactive to light, extraocular movements intact, sclera anicteric, conjunctiva are normal. ENT: nares patent, oropharynx clear without exudates. Moist mucous membranes. NECK: Normal range of motion, supple without lymphadenopathy LUNGS: Breath sounds clear to auscultation bilaterally and equal. No wheezes rales or rhonchi. HEART: Regular rate and rhythm without murmurs ABDOMEN: Soft, nontender, normoactive bowel sounds. No guarding, no rebound. No masses appreciated. EXTREMITIES: Normal range of motion, no pitting or edema. No cyanosis. NEUROLOGICAL: Face symmetric. Tongue protrudes midline. Extraocular motions intact. Pupils are 2 mm and equally reactive. Normal speech, normal gait. 5 out of 5 strength in both the distal and proximal upper and lower extremities bilaterally. Sensation is grossly intact throughout. Finger to nose testing normal. Pronator drift normal. PSYCH: Normal mood, normal affect. SKIN: Warm, Dry, normal turgor, no rashes or lesions noted. Course - Re-evaluation Re-evalutation: 11/15/18 00:36 Presentation of a headache that appears to be most consistent with tension versus migrainous type headache. Headache was not maximal in onset, patient has no focal neurologic deficits, no nuchal rigidity, vital signs within normal limits, no papilledema, and patient is overall well in appearance. Based on clinical history and examination I do not suspect an acute subarachnoid hemorrhage, dural venous sinus thrombosis, acute meningitis, or intercranial mass. Given my low clinical suspicion for any acute life-threatening etiology, I do not feel advanced neuro imaging or laboratory testing is indicated at this time. Will proceed with headache cocktail and reassess. - Vital Signs Vital signs: Temp Pulse Resp BP Pulse Ox 97.8 F 77 16 120/71 99 11/15/18 00:23 11/15/18 00:23 11/15/18 00:23 11/15/18 00:23 11/15/18 00:23 Discharge - Discharge Clinical Impression: Migraine headache Qualifiers: Migraine type: unspecified Status migrainosus presence: with status migrainosus Intractability: not intractable Qualified Code(s): G43.901 - Migraine, unspecifi ed, not intractable, with status migrainosus Nausea and vomiting Qualifiers: Vomiting type: unspecified Vomiting Intractability: non-intractable Qualified Code(s): R11.2 - Nausea with vomiting, unspecified Condition: Good Disposition: HOME, SELF-CARE Additional Instructions: You have been seen in the Emergency Department (ED) for a headache. Please use Tylenol (acetaminophen) or Motrin (ibuprofen) as needed for symptoms, but only as written on the box. As we have discussed, please follow up with your primary care doctor as soon as possible regarding today's ED visit and your headache symptoms. Call your doctor or return to the ED if you have a worsening headache, sudden and severe headache, confusion, slurred speech, facial droop, weakness or numbness in any arm or leg, extreme fatigue, or other symptoms that concern you. [facility]errals: [facility] [[facility]] - Follow up as needed
[2018-11-15 02:32] VITALS: BP 117/79
== END 2018-11-15 02:15 | disposition home or self-care (01) ==
LOC: ER 20:24
DX: G43.901 Migraine, unspecified, not intractable, with status migrainosus (principal); R11.2 Nausea with vomiting, unspecified; H53.149 Visual discomfort, unspecified; F17.200 Nicotine dependence, unspecified, uncomplicated; Z88.8 Allergy status to other drugs, medicaments and biological substances; Z88.6 Allergy status to analgesic agent
CPT/HCPCS: 99283; 96372; 96374; J1200; J1885; J2765; J0780

== ENCOUNTER → 2018-11-26 | Outpatient (CLI) | payer OTHER ==
--- NOTE | 2018-11-26 10:40 | WOMENS IMAGING REPORT ---
EXAM DESCRIPTION: BILAT SCREENING MAMMO W/CAD COMPLETED DATE/TIME: 11/26/2018 7:18 am REASON FOR STUDY: Z12.31 ROUTINE BILATERAL SCREENING Z12.31 ENCNTR SCREEN MAMMOGRAM FOR MALIGNANT N EOPLASM OF BREA COMPARISON: 2016 TECHNIQUE: Standard craniocaudal and mediolateral oblique views of each breast recorded using [employer] acquisition. LIMITATIONS: None. FINDINGS: No masses, calcifications or architectural distortion. No areas of suspicion. Read with the assistance of CAD. .[facility] - R2 Cenova Version 1.3 .[facility] - R2 Cenova Version 2.1 .[facility] - R2 Cenova Version 2.4 .[facility] [place] Cenova Version 2.4 .[facility] - R2 Director Speech Language Version 9.2 IMPRESSION: NORMAL MAMMOGRAM. BIRADS 1. BREAST DENSITY: b. There are scattered areas of fibroglandular density. BIRAD: 1 NEGATIVE RECOMMENDATION: ROUTINE SCREENING COMMENT: The patient has been notified of the results by letter per SA requirements. Additional no tification policies are in place for contacting patient with suspicious or incomplete findings. Quality ID #[id number]: The [employer] recommends an annual screening mammogram for women aged 40 years or over. This facility utilizes a reminder system to ensure that all patients receive reminder letters, and/or direct phone calls for appointments. This includes reminders for routine scr eening mammograms, diagnostic mammograms, or other Breast Imaging Interventions when appropriate. Th is patient will be placed in the appropriate reminder system. The [employer] (ACR) has developed recommendations for screening MRI of the breast s in certain patient populations, to be used in conjunction with mammography. Breast MRI surveillanc e may be appropriate for women with more than 20% lifetime risk of developing breast cancer as deter mined by genetic testing, significant family history of the disease, or history of mantle radiation f or Hodgkins Disease. ACR Practice Guidelines 2008. TECHNICAL DOCUMENTATION: FINDING NUMBER: (1) ASSESSMENT: (1) JOB ID: [id number] [employer] ([employer])- All Rights Reserved Reading location - IP/workstation name: [email or web address]
== END ==
LOC: WI 07:03
PROVIDERS: ATTEND Nurse Practitioner Family
DX: Z12.31 Encounter for screening mammogram for malignant neoplasm of breast (principal)
CPT/HCPCS: 77067

== ENCOUNTER 2019-06-15 22:32 | Emergency (ER) | payer OTHER ==
[2019-06-15] MEDS ORDERED: ASPIRIN 81 MG TABLET, CHEWABLE PO ONE (23:00)
--- NOTE | 2019-06-15 23:00 | ER Document Report ---
ED Medical Screen (RME) - General Chief Complaint: Cough Stated Complaint: COUGH Time Seen by Provider: 06/15/19 22:55 Primary Care Provider: ANABELA GARRIDO FNP [Primary Care Provider] - Follow up as needed Mode of Arrival: Ambulatory Information source: Patient Notes: 43-year-old female presented to ED for complaint of cough migraine chest pain and fever yesterday. She states the cough started on Saturday late in the day. She states the migraines started on morning the pain in her chest started on Saturday and the fever was yesterday and today. She states the highest temperature was 101.2. She states she has Fioricet for her migraines and albuterol for her chronic bronchitis that she gets yearly. She states she has used both of these with no relief. She states she did take Tylenol for the fever and no longer has a fever since this morning. She states she smokes 6 cigarettes a day does not drink and does not use drugs. She has not had any cigarettes today due to the cough. She is alert oriented respirations regular nonlabored speaking in full sentences. She does have a dry cough. She states she took Fioricet last this morning. She is been using Robitussin cough syrup since Saturday. He states she has not had any ibuprofen throughout this episode. I have greeted and performed a rapid initial assessment of this patient. A comprehensive ED assessment and evaluation of the patient, analysis of test results and completion of medical decision making process will be conducted by an additional ED providers. TRAVEL OUTSIDE OF THE [place] IN LAST 30 DAYS: No - Related Data Allergies/Adverse Reactions: diazepam [From Valium] Allergy (Verified 04/17/17 18:51) rash topiramate [From Topamax] Allergy (Verified 10/19/17 02:01) Past Medical History Pulmonary Medical History: Reports: Hx Bronchitis Neurological Medical History: Reports: Hx Migraine Renal/ Medical History: Denies: Hx Peritoneal Dialysis Musculoskeltal Medical History: Reports Hx Arthritis Past Surgical History: Reports: Hx Hysterectomy - Immunizations Immunizations up to date: Yes Hx Diphtheria, Pertussis, Tetanus Vaccination: No - will provide today Physical Exam - Vital signs Vitals: Temp Pulse Resp BP Pulse Ox 97.9 F 99 20 142/89 H 98 06/15/19 22:49 06/15/19 22:49 06/15/19 22:49 06/15/19 22:49 06/15/19 22:49 Course - Vital Signs Vital signs: Temp Pulse Resp BP Pulse Ox 97.9 F 99 20 142/89 H 98 06/15/19 22:49 06/15/19 22:49 06/15/19 22:49 06/15/19 22:49 06/15/19 22:49 Doctor's Discharge - Discharge Referrals: ANABELA GARRIDO FNP [Primary Care Provider] - Follow up as needed
[2019-06-15 23:32] LABS: ABSOLUTE EOSINOPHILS # (AUTO) 0.6 10^3/uL (0.0-0.6); ABSOLUTE LYMPHOCYTES (AUTO) 2.6 10^3/uL (0.5-4.7); ABSOLUTE MONOCYTES (AUTO) 0.4 10^3/uL (0.1-1.4); ABSOLUTE NEUT (AUTO) 4.4 10^3/uL (1.7-8.2); BASOPHILS % (AUTO) 0.5 % (0-2); EOSINOPHILS % (AUTO) 7.9 % (0-6); HEMATOCRIT 40.3 % (36.0-47.0); HEMOGLOBIN 13.6 g/dL (12.0-15.5); LYMPHOCYTES % (AUTO) 31.8 % (13-45); MEAN CORPUSCULAR HEMOGLOBIN 30.8 pg (27.0-33.4); MEAN CORPUSCULAR HGB CONC 33.7 g/dL (32.0-36.0); MEAN CORPUSCULAR VOLUME 92 fl (80-97); MONOCYTES % (AUTO) 5.1 % (3-13); PLATELET COUNT 255 10^3/uL (150-450); RED CELL DISTRIBUTION WIDTH 12.5 % (11.5-14.0); SEGMENTED NEUTROPHILS % (AUTO) 54.7 % (42-78); TOTAL CELLS COUNTED % (AUTO) 100 %; WHITE BLOOD COUNT 8.1 10^3/uL (4.0-10.5)
[2019-06-15 23:49] LABS: INTERNATIONAL RATION (INR) 0.94; PARTIAL THROMBOPLASTIN TIME 29.4 SEC (23.5-35.8); PROTHROMBIN TIME 12.6 SEC (11.4-15.4)
[2019-06-15 23:54] LABS: ALBUMIN 4.1 g/dL (3.5-5.0); ALKALINE PHOSPHATASE 71 U/L (38-126); ANION GAP 10 (5-19); ASPARTATE AMINO TRANSFERASE 17 U/L (14-36); BILIRUBIN,DIRECT 0.1 mg/dL (0.0-0.4); BILIRUBIN,TOTAL 0.2 mg/dL (0.2-1.3); BLOOD UREA NITROGEN 11 mg/dL (7-20); CALCIUM 9.1 mg/dL (8.4-10.2); CARBON DIOXIDE 22 mmol/L (22-30); CHLORIDE 108 mmol/L (98-107); CREATINE KINASE 48 U/L (30-135); GLUCOSE 92 mg/dL (75-110); POTASSIUM 4.2 mmol/L (3.6-5.0); TOTAL PROTEIN 7.2 g/dL (6.3-8.2)
--- NOTE | 2019-06-16 | RADIOLOGY REPORT (SQ) ---
EXAM DESCRIPTION: XR CHEST 2 VIEWS COMPLETED DATE/TME: 06/15/2019 23:01 CLINICAL HISTORY: 43 years, Female, cough chest pain COMPARISON: 02/05/2014. NUMBER OF VIEWS: 2 TECHNIQUE: Two views of the chest were obtained in PA and lateral projection. LIMITATIONS: None. FINDINGS: Unremarkable cardiac and mediastinal silhouette. Heart size is normal. Lungs are clear without focal opacity, pneumothorax or pleural effusions. The visualized bones are within normal limits. IMPRESSION: No acute cardiopulmonary abnormalities. copyright 2010 [employer]- All Rights Reserved
[2019-06-16 00:05] LABS: CREATINE KINASE MB 0.25 ng/mL (<4.55); NT PRO BNP 30 pg/mL (<125)
[2019-06-16 00:10] LABS: TROPONIN I < 0.012 ng/mL
[2019-06-16] MEDS ORDERED: METOCLOPRAMIDE HCL INJ/PF 10 MG/2 ML SDV IV ONE (00:19)
[2019-06-16] MEDS ORDERED: KETOROLAC TROMETHAMINE INJ/PF 30 MG/1 ML SDV IV ONE (00:19)
[2019-06-16] MEDS ORDERED: PREDNISONE 20 MG TABLET PO ONE (00:20)
[2019-06-16] MEDS ORDERED: IPRATROPIUM/ALBUTEROL 0.5-2.5 MG/3 ML AMPUL NEB ONE (00:20)
[2019-06-16] MEDS ORDERED: NORMAL SALINE 1000 ML 1,000 ML IV ONE (00:20)
--- NOTE | 2019-06-16 01:45 | ER Document Report ---
ED General - General Chief Complaint: Cough Stated Complaint: COUGH Time Seen by Provider: 06/15/19 22:55 Primary Care Provider: ANABELA GARRIDO FNP [NO LOCAL MD] - Follow up as needed Mode of Arrival: Ambulatory Notes: Patient is a 43-year-old female presents to the emergency department with multiple complaints. States she has had generalized cough and congestion for the last 6 days. She is denying any fevers. States for the last 3 days she has had intermittent migraine. States she typically takes Fioricet which usually works but this evening her pain continued which is why she presented to the emergency department. Patient is also complaining of left-sided and center chest pain more so when she takes a deep breath or coughs. Patient voices she does have a history of chronic bronchitis, migraines, GERD Medications: Fioricet, albuterol, pantoprazole Allergies: Valium, Topamax TRAVEL OUTSIDE OF THE [place] IN LAST 30 DAYS: No - Related Data Allergies/Adverse Reactions: diazepam [From Valium] Allergy (Verified 06/15/19 23:19) rash topiramate [From Topamax] Allergy (Verified 06/15/19 23:19) Past Medical History - General Information source: Patient - Social History Smoking Status: Current Every Day Smoker Chew tobacco use (# tins/day): No Frequency of alcohol use: None Drug Abuse: None Family History: DM, Hypertension, Malignancy Patient has suicidal ideation: No Patient has homicidal ideation: No Pulmonary Medical History: Reports: Hx Bronchitis Neurological Medical History: Reports: Hx Migraine Renal/ Medical History: Denies: Hx Peritoneal Dialysis Musculoskeletal Medical History: Reports Hx Arthritis Past Surgical History: Reports: Hx Hysterectomy - Immunizations Immunizations up to date: Yes Hx Diphtheria, Pertussis, Tetanus Vaccination: No - will provide today Review of Systems - Review of Systems Constitutional: denies: Fever EENT: See HPI Cardiovascular: See HPI Respiratory: See HPI Gastrointestinal: denies: Diarrhea, Vomiting Genitourinary: No symptoms reported Female Genitourinary: No symptoms reported Musculoskeletal: See HPI Skin: No symptoms reported Hematologic/Lymphatic: No symptoms reported Neurological/Psychological: See HPI Physical Exam - Vital signs Vitals: Temp Pulse Resp BP Pulse Ox 97.9 F 99 20 142/89 H 98 06/15/19 22:49 06/15/19 22:49 06/15/19 22:49 10/21/19 22:49 06/15/19 22:49 - Notes Notes: GENERAL: Alert, interacts well. No acute distress. HEAD: Normocephalic, atraumatic. EYES: Pupils equal, round, and reactive to light. Extraocular movements intact. ENT: Oral mucosa moist, tongue midline. Nares patent, no nasal septal hematoma, TM's intact, nonerythematous, nonbulging bilaterally. NECK: Full range of motion. Supple. Trachea midline. LUNGS: End expiratory wheeze to auscultation bilateral bases, no discernible rales, or rhonchi. No respiratory distress. HEART: Regular rate and rhythm. No murmur ABDOMEN: Soft, non-tender. Non-distended. Bowel sounds present in all 4 quadrants. EXTREMITIES: Moves all 4 extremities spontaneously. No edema, normal radial and dorsalis pedis pulses bilaterally. No cyanosis. 5 out of 5 strength noted all 4 extremities BACK: no cervical, thoracic, lumbar midline tenderness. No saddle anesthesia, normal distal neurovascular exam. NEUROLOGICAL: Alert and oriented x3. Normal speech. cranial nerves II through XII grossly intact. PSYCH: Normal affect, normal mood. SKIN: Warm, dry, normal turgor. No rashes or lesions noted. Course - Re-evaluation Re-evalutation: Laboratory 06/15/19 06/15/19 06/15/19 23:10 23:10 23:10 WBC 8.1 RBC 4.40 Hgb 13.6 Hct 40.3 MCV 92 MCH 30.8 MCHC 33.7 RDW 12.5 Plt Count 255 Lymph % (Auto) 31.8 [place] % (Auto) 5.1 Eos % (Auto) 7.9 H Baso % (Auto) 0.5 Absolute Neuts (auto) 4.4 Absolute Lymphs (auto) 2.6 Absolute Monos (auto) 0.4 Absolute Eos (auto) 0.6 Absolute Basos (auto) 0.0 Seg Neutrophils % 54.7 PT 12.6 INR 0.94 APTT 29.4 Sodium 139.9 Potassium 4.2 Chloride 108 H Carbon Dioxide 22 Anion Gap 10 BUN 11 Creatinine 0.68 Est GFR ( Amer) > 60 Est GFR (MDRD) Non-Af > 60 Glucose 92 Calcium 9.1 Magnesium 2.0 Total Bilirubin 0.2 Direct Bilirubin 0.1 Neonat Total Bilirubin Not Reportable Neonat Direct Bilirubin Not Reportable Neonat Indirect Bili Not Reportable AST 17 ALT 16 Alkaline Phosphatase 71 Creatine Kinase 48 CK-MB (CK-2) Troponin I NT-Pro-B Natriuret Pep Total Protein 7.2 Albumin 4.1 TSH Free T4 06/15/19 06/15/19 06/15/19 23:10 23:10 23:10 WBC RBC Hgb Hct MCV MCH MCHC RDW Plt Count Lymph % (Auto) [place] % (Auto) Eos % (Auto) Baso % (Auto) Absolute Neuts (auto) Absolute Lymphs (auto) Absolute Monos (auto) Absolute Eos (auto) Absolute Basos (auto) Seg Neutrophils % PT INR APTT Sodium Potassium Chloride Carbon Dioxide Anion Gap BUN Creatinine Est GFR ( Amer) Est GFR (MDRD) Non-Af Glucose Calcium Magnesium Total Bilirubin Direct Bilirubin Neonat Total Bilirubin Neonat Direct Bilirubin Neonat Indirect Bili AST ALT Alkaline Phosphatase Creatine Kinase CK-MB (CK-2) 0.25 Troponin I < 0.012 NT-Pro-B Natriuret Pep 30 Total Protein Albumin TSH 3.27 Free T4 1.28 Chest X-Ray 06/15/19 23:01 IMPRESSION: No acute cardiopulmonary abnormalities. copyright 2010 [employer]- All Rights Reserved Patient voices she no longer has a headache after treatments in the emergency department. Her chest x-ray shows no signs of pneumonia, pneumothorax, rib fracture. Discussed with her likely viral diagnosis. Discussed use of albuterol treatments every 4 hours for the next 3 days. Also discussed use of steroids and Tessalon Perles. Patient voices the left-sided chest pain has somewhat subsided with Toradol. States it only hurts now when she has a "coughing fit." Discussed close follow-up with primary care provider with close return precautions. Patient stable for discharge. - Vital Signs Vital signs: Temp Pulse Resp BP Pulse Ox 97.9 F 99 20 142/89 H 98 06/15/19 22:49 06/15/19 22:49 06/15/19 22:49 06/15/19 22:49 06/15/19 22:49 - Laboratory Result Diagrams: 06/15/19 23:10 06/15/19 23:10 Laboratory results interpreted by me: 06/15/19 06/15/19 23:10 23:10 Eos % (Auto) 7.9 H Chloride 108 H Discharge - Discharge Clinical Impression: Bronchospasm Upper respiratory infection Qualifiers: URI type: unspecified viral URI Qualified Code(s): J06.9 - Acute upper respiratory infection, unspecified Migraine Qualifiers: Migraine type: unspecified Status migrainosus presence: without status migrainosus Intractability: not intractable Qualified Code(s): G43.909 - Migraine, unspecified, not intractable, without status migrainosus Condition: Stable Disposition: HOME, SELF-CARE Instructions: Viral Syndrome ([facility]), Upper Respiratory Illness ([facility]), Migraine Headache ([facility]), Bronchitis With Bronchospasm (Wheezing) ([facility]) Additional Instructions: As we discussed you have been seen and treated in the emergency department for generalized cough, congestion, migraine and left-sided rib pain. Please make sure you use your albuterol treatment every 4 hours for the next 3 days. Please also make sure you take steroids as prescribed. Please stay well-hydrated. P nghiaase follow-up with your primary care provider in the next 12 to 24 hours. Return to the emergency room for any concerns. Prescriptions: Prednisone [Deltasone 20 mg Tablet] 3 tab PO DAILY 5 Days tablet Albuterol Sulfate [Proair HFA Inhalation Aerosol 8.5 gm MDI] 2 puff IH Q4H PRN #1 mdi PRN Reason: Benzonatate [Tessalon Perles 100 mg Capsule] 100 mg PO ASDIR PRN #40 capsule PRN Reason: Forms: Return to Work Referrals: ANABELA GARRIDO FNP [NO LOCAL MD] - Follow up as needed
[2019-06-16] MEDS ORDERED: ALBUTEROL SULFATE HFA (90 MCG/PUFF) 8 GM MDI (1 MDI/ER DISP) IH ONE (01:47)
[2019-06-16 02:20] VITALS: BP 126/79
--- NOTE | 2019-06-16 09:24 | EKG REPORT ---
SEVERITY:- NORMAL ECG - SINUS RHYTHM : Confirmed by: Geri Montes De Oca MD 16-Jun-2019 09:23:43
== END 2019-06-16 02:29 | disposition home or self-care (01) ==
LOC: ER 22:32
DX: J06.9 Acute upper respiratory infection, unspecified (principal); B97.89 Other viral agents as the cause of diseases classified elsewhere; G43.909 Migraine, unspecified, not intractable, without status migrainosus; J98.01 Acute bronchospasm; J42 Unspecified chronic bronchitis; R06.2 Wheezing; R05 Cough; R07.1 Chest pain on breathing; K21.9 Gastro-esophageal reflux disease without esophagitis; Z79.899 Other long term (current) drug therapy; Z88.8 Allergy status to other drugs, medicaments and biological substances; Z88.6 Allergy status to analgesic agent; F17.200 Nicotine dependence, unspecified, uncomplicated
CPT/HCPCS: 93005; 94640; 99284; 96361; 96374; 96375; 36415; 84439; 82553; 82550; 83735; 84443; 85025; 85610; 85730; 80053; 84484; 83880; 71046; 93010; J1885; J2765; J7512; J7030; J3490; J7620

== ENCOUNTER 2020-04-08 21:04 | Emergency (ER) | payer OTHER ==
[2020-04-08] MEDS ORDERED: KETOROLAC TROMETHAMINE 60 MG/2 ML SDV IM ONE (21:40)
--- NOTE | 2020-04-08 21:43 | ER Document Report ---
ED Medical Screen (RME) - General Chief Complaint: Back Pain Stated Complaint: LOWER BACK PAIN [facility] [[facility]] - Follow up as needed TRAVEL OUTSIDE OF THE [place] IN LAST 30 DAYS: No - HPI Notes: 04/08/20 21:40 44-year-old female presents emergency room with complaints of lower back pain that is become progressively worse and today it was severe that made her come to the emergency room. Patient does not recall falling or injuring her back has tried [id number] ibuprofen Tylenol and naproxen without any relief. Today she is having severe pain, worse with sitting, better with standing. Has never been evaluated for back pain before. 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 Reports pain is 5 out of 5. Denies any numbness or tingling to bilateral lower extremities. Denies any fever chills, chest pain shortness of breath, bowel or bladder dysfunction, no saddle anesthesia. I have greeted and performed a rapid initial assessment of this patient. A comprehensive ED assessment and evaluation of the patient, analysis of test results and completion of the medical decision making process will be conducted by additional ED providers. PHYSICAL EXAMINATION: GENERAL: Well-appearing, well-nourished and in no acute distress. CV: s1, s2 regular LUNGS: No respiratory distress Musculoskeletal: Normal range of motion.Pain with flexion and extension at 40 degrees, positive straight leg test on left. Normal hip rotation. DTR +2 in BLE equally. Noted paraspinal tenderness near L2 and L3 on left and spinal tenderness from L1-L4 NEUROLOGICAL: Normal speech, normal gait with grimacing SKIN: Warm, Dry, normal turgor, no rashes or lesions noted. - Related Data Allergies/Adverse Reactions: diazepam [From Valium] Allergy (Verified 06/15/19 23:19) rash topiramate [From Topamax] Allergy (Verified 06/15/19 23:19) Home Medications: Pantoprazole 40mg. synthroid. sumatriptin Past Medical History - Social History Frequency of alcohol use: None Drug Abuse: None Pulmonary Medical History: Reports: Hx Bronchitis Neurological Medical History: Reports: Hx Migraine Renal/ Medical History: Denies: Hx Peritoneal Dialysis Musculoskeltal Medical History: Reports Hx Arthritis Past Surgical History: Reports: Hx Hysterectomy - Immunizations Immunizations up to date: Yes Hx Diphtheria, Pertussis, Tetanus Vaccination: No - will provide today Physical Exam - Vital signs Vitals: Temp Pulse Resp BP Pulse Ox 98.0 F 94 18 140/85 H 100 04/08/20 21:22 04/08/20 21:22 04/08/20 21:22 04/08/20 21:22 04/08/20 21:22 Course - Vital Signs Vital signs: Temp Pulse Resp BP Pulse Ox 98 F 94 18 140/85 H 100 04/08/20 21:30 04/08/20 21:22 04/08/20 21:22 04/08/20 21:22 04/08/20 21:22 Doctor's Discharge - Discharge [facility]errals: [facility] [[facility]] - Follow up as needed
--- NOTE | 2020-04-08 22:23 | RADIOLOGY REPORT (SQ) ---
INDICATION: lbp x 3 weeks,worse today w/ sitting, better stand. TECHNIQUE: 5 view(s) of the lumbar spine. Both obliques COMPARISON: None FINDINGS: No evidence of acute displaced fracture. Shallow levoconvex curvature. No anteroposterior subluxation.. The facets and intervertebral joints are within normal limits for age. Vertebral body heights are well-maintained. Surrounding soft tissues are unremarkable. IMPRESSION: No evidence of acute displaced fracture of the lumbar spine. The cause of the patient's back pain is not identified on this examination.
[2020-04-08 23:12] LABS: APPEARANCE,URINE SLIGHTLY-CLOUDY; BILIRUBIN,URINE NEGATIVE (NEGATIVE); COLOR,URINE YELLOW; GLUCOSE, URINE NEGATIVE (NEGATIVE); KETONES,URINE NEGATIVE (NEGATIVE); LEUKOCYTE ESTERASE,URINE MODERATE (NEGATIVE); NITRITE,URINE NEGATIVE (NEGATIVE); PROTEIN,URINE NEGATIVE (NEGATIVE); URINE SPECIFIC GRAVITY 1.024; UROBILINOGEN,URINE NEGATIVE mg/dL (<2.0)
[2020-04-09] MEDS ORDERED: METHYLPREDNISOLONE INJ 125 MG/2 ML SDV IM ONE (00:31)
--- NOTE | 2020-04-09 00:33 | ER Document Report ---
Doctor's Note Notes: 04/09/20 00:42 Continues to complain of pain while waiting in the waiting room for a further evaluation. Patient states her back is been bothering her for approximately 2 weeks. She denies any trauma or injury. Pain does not radiate down her legs. Has tried heat, ice, and Naprosyn without relief. Reviewed patient's L-spine with her which was within normal limits reviewed urinalysis which showed blood on her urinalysis. Patient denies any urinary symptoms. Status post hysterectomy several years ago. She has no history of kidney stones. Patient drove self to the emergency room medications are limited. Patient was offered a CT abdomen and pelvis without contrast to rule out a stone secondary to the hematuria on her urinalysis. Patient was also offered IM Solu-Medrol she did not get any relief from the Toradol. Patient is agreeable to CT and additional medications will need to be reevaluated after CT is completed. 04/09/20 00:43
--- NOTE | 2020-04-09 01:14 | RADIOLOGY REPORT (SQ) ---
EXAM DESCRIPTION: CT ABDOMEN PELVIS WITHOUT IV CONTRAST COMPLETED DATE/TME: 04/09/2020 00:32 CLINICAL INDICATION: 44-year-old female with hematuria. COMPARISON: None. EXAMINATION: CT of the abdomen and pelvis was performed without intravenous or oral contrast. Multiplanar reformatted images were provided. This exam was performed according to our departmental dose optimization program which includes use of automated exposure control, adjustment of the mA and/or kV according to patient size and/or use of iterative reconstruction technique. FINDINGS: Evaluation of solid organ pathology is limited secondary to lack of intravenous contrast. Within these limitations, the following observations are made. Chest: Evaluation through the lung bases reveals no focal opacity, pleural effusion or pneumothorax. Heart size is within normal limits. No pericardial effusion. Abdomen and pelvis: The liver, gallbladder, pancreas, spleen, bilateral kidneys and bilateral adrenal glands are within normal limits. The vessels are normal in caliber. No abdominopelvic lymph nodes are noted to be pathologically enlarged by CT measurement criteria. The bowel is within normal limits without abnormal bowel wall thickness or bowel dilation. Diverticular disease without findings to suggest diverticulitis. No free air. No free abdominopelvic fluid collections. The appendix is within normal limits. Thickened appearance of the bladder wall may be secondary to incomplete distention, however can be seen in the setting of infectious or inflammatory process. Please correlate with laboratory values. The osseous structures are within normal limits. IMPRESSION: 1. No specific acute intra-abdominal findings are noted to suggest etiology of the patient's abdominal pain. 2. Thickened appearance of the bladder wall may be secondary to incomplete distention, however can be seen in the setting of infectious or inflammatory process. Please correlate with laboratory values. 3. Diverticular disease without findings to suggest diverticulitis.
[2020-04-09 01:30] VITALS: BP 149/82
[2020-04-09] MEDS ORDERED: HYDROCODONE/ACETAMINOPHEN 5-325 MG (6 TAB/ER DISP) PO PRN (01:32)
--- NOTE | 2020-04-09 01:32 | ER Document Report ---
HPI - HPI Patient complains to provider of: Back pain Time Seen by Provider: 04/08/20 21:53 Pain Level: 4 Context: 44-year-old female presents to the emergency room complaining of worsening left- sided low back pain that radiates into her left hip for the past 2 weeks. Denies any trauma or injury. Has tried taking naproxen and using heat without relief. Denies any urinary symptoms. No history of previous back trauma or injury. Denies any loss of control of her bowels or bladder. No saddle anesthesia. No red flags. Associated Symptoms: None Exacerbated by: Movement Relieved by: Denies Similar symptoms previously: No Recently seen / treated by doctor: No - ROS Systems Reviewed and Negative: Yes All other systems reviewed and negative - CONSTITUTIONAL Constitutional: DENIES: Fever - NEURO Neurology: DENIES: Weakness - RESPIRATORY Respiratory: DENIES: Trouble Breathing - GASTROINTESTINAL Gastrointestinal: DENIES: Abdominal Pain - URINARY Urinary: DENIES: Dysuria, Urgency - REPRODUCTIVE Reproductive: DENIES: : - MUSCULOSKELETAL Musculoskeletal: REPORTS: Back Pain - DERM Skin Color: Normal Skin Problems: None Past Medical History - General Information source: Patient - Social History Smoking Status: Current Every Day Smoker Frequency of alcohol use: None Drug Abuse: None Family History: DM, Hypertension, Malignancy Patient has homicidal ideation: No Pulmonary Medical History: Reports: Hx Bronchitis Neurological Medical History: Reports: Hx Migraine Renal/ Medical History: Denies: Hx Peritoneal Dialysis Musculoskeletal Medical History: Reports Hx Arthritis Past Surgical History: Reports: Hx Hysterectomy - Immunizations Immunizations up to date: Yes Hx Diphtheria, Pertussis, Tetanus Vaccination: No - will provide today Vertical Provider Document - CONSTITUTIONAL Agree With Documented VS: Yes Exam Limitations: No Limitations General Appearance: Moderate Distress - INFECTION CONTROL TRAVEL OUTSIDE OF THE [place] IN LAST 30 DAYS: No - HEENT HEENT: Atraumatic, Normocephalic - NECK Neck: Normal Inspection, Supple, Thyroid Normal - RESPIRATORY Respiratory: Breath Sounds Normal, No Respiratory Distress, Chest Non-Tender - CARDIOVASCULAR Cardiovascular: Regular Rate, Regular Rhythm, No Murmur - GI/ABDOMEN Gastrointestinal: Abdomen Soft, Abdomen Non-Tender. negative: Abdominal Guarding, Abdominal Rebound, No Organomegaly - BACK Back: Abnormal Inspection - There is tenderness on palpation from L4-S1. There is tenderness of the left sciatic notch. She has negative straight leg raising bilaterally. Soft.. negative: CVA Tenderness-Right, CVA Tenderness-Left - MUSCULOSKELETAL/EXTREMETIES Musculoskeletal/Extremeties: FROM - NEURO Level of Consciousness: Awake, Alert, Appropriate Motor/Sensory: No Motor Deficit, No Sensory Deficit Deep Tendon Reflexes: 2+ Notes: Positive left pedal pulse. Capillary refill less than 3 seconds. She is able to ambulate with assistance with limping noted to the left leg. She is neurovascularly intact. - DERM Integumentary: Warm, Dry, No Rash Course - Re-evaluation Re-evalutation: 04/09/20 01:26 Patient with minimal relief in pain after IM Toradol and IM Solu-Medrol. Reviewed all labs and CAT scan and x-ray results with patient at length. Unfortunately patient drove self to ED and does not have anyone to pick her up so we are unable to give her any additional medication. She is able to ambulate with minimal difficulty with limping noted to the left leg.. She is neurovascularly intact. No indications for an MRI at this time. Will discharge patient home on Flexeril description and Calvert #6 discharge pack. She was counseled on the importance of following up outpatient with her primary care physician if not improving in 2 to 3 days and for the microscopic hematuria. Urine culture was ordered. She will be notified of any abnormalities on the culture that required treatment. Patient was given strict return to the emergency room guidelines. Return for any new or worsening symptoms. All questions were answered. Patient verbalized understanding and agrees with plan of care. 04/09/20 01:32 04/09/20 01:37 04/09/20 01:38 - Vital Signs Vital signs: Temp Pulse Resp BP Pulse Ox 98 F 94 18 140/85 H 100 04/08/20 21:30 04/08/20 21:22 04/08/20 21:22 04/08/20 21:22 04/08/20 21:22 - Laboratory Laboratory results interpreted by me: 04/08/20 22:42 Urine Blood SMALL H Ur Leukocyte Esterase MODERATE H - Diagnostic Test Radiology reviewed: Reports reviewed Discharge - Discharge Clinical Impression: Back pain with left-sided sciatica Hematuria Qualifiers: Hematuria type: other microscopic Qualified Code(s): R31.29 - Other microscopic hematuria Condition: Stable Disposition: HOME, SELF-CARE Instructions: Hematuria ([facility]), Low Back Pain ([facility]), Sciatica ([facility]) Additional Instructions: You have been seen in the Emergency Department (ED) today for back pain. Your workup and exam have not shown any acute abnormalities and you are likely suffering from muscle strain or possible problems with your discs, but there is no treatment that will fix your symptoms at this time. Please take the Flexeril and Calvert as prescribed. You should also purchase a local lidocaine cream such as "aspercreme with lidocaine" and use per bottle instructions to the affected area. Apply heat to the area as often as you are able. Continue to keep active and avoid prolonged periods of bed rest. Please follow up with your doctor as soon as possible regarding today's ED visit and your back pain. Return to the ED for worsening back pain, fever, weakness or numbness of either leg, or if you develop either (1) an inability to urinate or have bowel movements, or (2) loss of your ability to control your bathroom functions (if you start having "accidents"), or if you develop other new symptoms that concern you.concern you. Prescriptions: Cyclobenzaprine HCl [Flexeril 10 mg Tablet] 10 mg PO TIDP PRN #15 tab PRN Reason: Referrals: [facility] [Primary [facility]] - Follow up as needed
== END 2020-04-09 02:07 | disposition home or self-care (01) ==
LOC: ER 21:04
DX: R31.29 Other microscopic hematuria (principal); M54.32 Sciatica, left side; M54.9 Dorsalgia, unspecified; M54.5 Low back pain; M25.552 Pain in left hip; F17.200 Nicotine dependence, unspecified, uncomplicated
CPT/HCPCS: 99285; 96372; 87086; 81025; 81001; 72110; 74176; J1885; J2930